=== PATIENT | male | born 1970 | race Caucasian/White ===

== ENCOUNTER 2019-06-04 17:55 | Emergency (ER) | payer SELFPAY ==
[~2019-06-04] VITALS: Ht 172.7 cm; Wt 68.9 kg
[2019-06-04 18:04] VITALS: BP 156/87
== END 2019-06-04 18:42 | disposition home or self-care (01) ==
LOC: ER 18:01
DX: M21.331 Wrist drop, right wrist (principal); I10 Essential (primary) hypertension; E78.5 Hyperlipidemia, unspecified